=== PATIENT | female | born 1965 | race Caucasian/White ===

== ENCOUNTER 2019-12-28 21:07 | Emergency (ER) | payer OTHER, SELFPAY ==
--- NOTE | 2019-12-28 21:09 | DI.RAD.S_ITS ---
PROCEDURE: XR ANKLE RT MIN 3V INDICATIONS: obvious deformity TECHNIQUE: 3 views of the ankle were acquired. COMPARISON: None. FINDINGS: Bones: There is a trimalleolar fracture dislocation of the right ankle with moderate lateral displacement of the tibiotalar articulation. The distal tibiofibular metaphyseal alignment appears maintained. There is slight posterior subluxation at the tibiotalar joint seen on the lateral view. Soft tissues: Moderate tibiotalar joint effusion and surrounding soft tissue swelling. Achilles tendon appears normal. IMPRESSION: 1. Trimalleolar fracture dislocation. Dictated by: Mili Cook M.D. on 12/28/2019 at 21:35 Approved by: Mili Cook M.D. on 12/28/2019 at 21:37
--- NOTE | 2019-12-28 21:09 | DI.RAD.S_ITS ---
PROCEDURE: XR KNEE RT 1TO2V INDICATIONS: fall with pain TECHNIQUE: 2 views of the knee were acquired. COMPARISON: None. FINDINGS: Bones: No fractures or dislocations. There is near-complete medial compartment joint space loss and prominent medial marginal spur formation. Flattening of the femoral condyles is present. No suspicious bony lesions. Soft tissues: No joint effusion. Mild lateral compartment chondrocalcinosis seen. No suspicious soft tissue calcifications. IMPRESSION: 1. No definite fracture or dislocation given 2 views. 2. Moderate to severe medial compartment osteoarthritic change. 3. Lateral compartment chondrocalcinosis. Dictated by: Mili Cook M.D. on 12/28/2019 at 21:37 Approved by: Mili Cook M.D. on 12/28/2019 at 21:39
[2019-12-28 21:10] VITALS: BP 191/79; PULSE 75; RESP 19; TEMP 36.6; O2SAT 100; BMI 38.4
--- NOTE | 2019-12-28 21:26 | PC.NURSE ---
closed skin with obvious deformity or right ankle. Patient reports taking out her garbage and tripping resulting in right ankle pain with no ability to get self up.
[2019-12-28 21:37] VITALS: BP 188/78; PULSE 87; RESP 18; O2SAT 98
[2019-12-28] MEDS: KETAMINE 500 MG/5 ML INJ 120 MG IV (22:00)
[2019-12-28 22:10] VITALS: BP 181/86; PULSE 77; RESP 16; O2SAT 100
--- NOTE | 2019-12-28 22:20 | DI.RAD.S_ITS ---
PROCEDURE: XR ANKLE RT 2V INDICATIONS: post reduction TECHNIQUE: 2 views of the ankle were acquired. COMPARISON: [facility], , XR ANKLE RT MIN 3V, 12/28/2019, 21:04. FINDINGS: There has been placement of an overlying splint, which does result in difficulty evaluating the underlying bony structures for subtle abnormalities. However, there has been interval improvement in alignment of the trimalleolar ankle fracture, which appears to be in near anatomic position. Prominent improvement in alignment of the medial and lateral malleolar fractures is evident. There is posterior displacement of the posterior malleolar fracture fragment by up to approximately 1.2 cm. Soft tissue swelling is present. No radiopaque foreign bodies are appreciated. IMPRESSION: Improved alignment of the trimalleolar right ankle fracture, status post closed reduction. Dictated by: Tc Jay M.D. on 12/29/2019 at 7:37 Approved by: Tc Jay M.D. on 12/29/2019 at 7:38
--- NOTE | 2019-12-28 22:39 | PC.NURSE ---
patient received ketamine and was able to have ankle reduced with no further medications. Patient maintained own airway through out procedure. No airway interventions necessary. Additional vitals printed, labled with patient label and placed in chart.
[2019-12-28] MEDS: HYDROCODONE/ACET 5/325 TABLET 2 TAB PO (23:30)
--- NOTE | 2019-12-28 23:40 | ED_ITS ---
HPI - Extremity Injury (Lower) General Chief Complaint: Extremity Injury, Lower Stated Complaint: GLF-Ankle deformity Time Seen by Provider: 12/28/19 21:10 Source: patient and EMS Mode of arrival: EMS Limitations: no limitations History of Present Illness HPI Narrative: 54-year-old female nonsmoker with noncontributory medical history presents by EMS for evaluation of severe right ankle pain and obvious deformity. She was walking and stepped incorrectly and suffered a significant ankle injury. She denies any head neck or back pain. She does think that she might have tweaked her knee but denies much in the way of pain. She denies any numbness, tingling or weakness. She states she absolutely cannot weight bear. EMS put her in vacuum splint and administered fentanyl 150 micro g prior to her arrival MD complaint: ankle injury Type of Injury: inversion Place: street/outdoors Severity: severe Relieving factors: immobilization Exacerbating factors: weight bearing, movement and palpation Related Data Home Medications Medication Instructions Recorded Confirmed acetaminophen [Tylenol Extra 500 mg PO Q8HP PRN #0 10/04/16 Strength] Previous Rx's Medication Instructions Recorded hydrocodone-acetaminophen 0 tab PO Q6HP PRN #15 tab 09/19/16 hydrocodone-acetaminophen 1 tab PO Q4-6H PRN #20 tab 12/28/19 Allergies Allergy/AdvReac Type Severity Reaction Status Date / Time codeine [CODEINE] Allergy Mild RASH Verified 12/28/19 23:24 erythromycin base Allergy Mild RASH Verified 12/28/19 23:24 [ERYTHROMYCIN BASE] Penicillins [PENICILLINS] Allergy Mild RASH Verified 12/28/19 23:24 Patient History Surgical History (Updated 01/24/18 @ 06:34 by Conversion Provider) Status post delivery (12/18/97) Status post knee surgery Family History (Updated 10/04/16 @ 00:00 by Kianna Elizabeth PA-C) Mother History of diabetes mellitus, type II History of hypertension History of hyperlipidemia History of stroke Social History Smoking Status: Never smoker Smoking Status: Never smoker alcohol intake frequency: holidays/special occasions only Substance Use Type: does not use Exam Narrative Exam Narrative: GENERAL: [54] year old patient appears stated age. Well- nourished, well-developed patient, in mild distress. Obviously in pain, pointing to her right ankle HEAD: Atraumatic. Normocephalic. EYES: Pupils equal round and reactive. Extraocular motions intact. No scleral icterus. No injection or drainage. ENT: Nose without bleeding, purulent drainage. Throat without erythema, tonsillar hypertrophy or exudate. Airway patent. NECK: Trachea midline. Non tender CARDIOVASCULAR: Regular rate and rhythm without murmurs, gallops, or rubs. RESPIRATORY: Clear to auscultation. Breath sounds equal bilaterally. No wheezes, rales, or rhonchi. GASTROINTESTINAL: Abdomen soft, non-tender, nondistended. EXTREMITIES: Obvious deformity of right ankle consistent with fracture dislocation. This is isolated, closed and neurovascularly intact BACK: Nontender without deformity or crepitance. No flank tenderness. NEURO: AOx3. SKIN: No rash or erythema of visible areas Initial Vital Signs Initial Vital Signs: Vital Signs Temperature 97.9 F 12/28/19 21:10 Pulse Rate 75 12/28/19 21:10 Respiratory Rate 19 12/28/19 21:10 Blood Pressure 191/79 H 12/28/19 21:10 Pulse Oximetry 100 12/28/19 21:10 Procedures Orthopedic Joint Reduction Joint #1: Time Out Performed: Yes Side: right Joint Reduction Location: ankle Analgesia: procedural sedation Technique used: traction/counter-traction Post-reduction neuro exam: intact Post-reduction vascular: intact Post Reduction X-Ray Obtained: Yes Post Reduction X-Ray Results: reduced Splint Applied: Yes Patient Tolerated Procedure: Well Orthopedic Splinting/Casting Injury #1: Side: right Lower Extremity Injury Location: ankle Lower Extremity Immobilizer: posterior splint and stirrup splint Other Orthopedic Equipment: crutches Post splinting neuro exam: intact Post splinting vascular exam: intact Placed by: Nursing Procedural Sedation Consent signed: Yes Time out performed: Yes Indication: fracture/dislocation reduction ASA Class: II Mallampati Airway Classification: Class II Preparation: cardiac rehabilitation program director applied, pulse oximeter, capnometry used, supplemental O2 applied, suction/airway equipment at bedside and IV secured Ketamine: IV Ketamine dose (mg): 120 Intraservice time/total sedation time (min): 10 ED Sedation Level: Moderate (Concious) Patient Tolerated Procedure: Well Complications: none Course Orders Ordered: ED Orders 12/28/19 21:09 XR ankle RT min 3V Stat XR knee RT 1to2V Stat 12/28/19 22:20 XR ankle RT 2V Stat Discontinued Medications Hydrocodone Bitart/Acetaminophen (Vicodin 5/325 Prepack) 1 bottle MISC SEEINSTR ONE Stop: 12/28/19 22:57 Last Admin: 12/29/19 00:03 Dose: 1 bottle Documented by: SELIN Hydrocodone Bitart/Acetaminophen ([place] 5/325) 2 tab PO NOW ONE Stop: 12/28/19 23:26 Last Admin: 12/28/19 23:30 Dose: 2 tab Documented by: SELIN Ketamine HCl (Ketalar) 120 mg 1 mg/kg (120 mg) IV NOW ONE Stop: 12/28/19 21:46 Last Admin: 12/28/19 22:00 Dose: 120 mg Documented by: SELIN Ondansetron HCl (Zofran Odt Prepack) 1 bottle MISC SEEINSTR ONE Stop: 12/28/19 22:57 Last Admin: 12/29/19 00:03 Dose: 1 bottle Documented by: SELIN Pantoprazole Sodium (Protonix) 40 mg IV NOW ONE Stop: 12/28/19 22:22 Propofol (Diprivan) 120 mg 1 mg/kg (120 mg) IV NOW ONE Stop: 12/28/19 21:46 Last Admin: 12/28/19 22:44 Dose: Not Given Documented by: SELIN Consultations Consultation #1: call to Dr. Adams. Discussed case, splinting, crutches, pain control and follow up Vital Signs Vital signs: Vital Signs - 8 hr 12/28/19 21:10 12/28/19 21:37 12/28/19 22:10 Temperature 97.9 F Pulse Rate 75 87 77 Respiratory Rate 19 18 16 Blood Pressure 191/79 H Blood Pressure [Left Arm] 188/78 H 181/86 H Pulse Oximetry 100 98 100 MDM - Extremity Injury (Lower) Lab Data Labs: Point of Care Testing Test Results Not applicable Discharge Plan Departure Patient Disposition: Home Clinical Impression: Closed trimalleolar fracture Qualifiers: Encounter type: initial encounter Laterality: right Qualified Code(s): S82.851A - Displaced trimalleolar fracture of right lower leg, initial encounter for closed fracture Discharge Date/Time: 12/29/19 00:00 Instructions: DI for Ankle Fracture Activity Restrictions/Additional Instructions: *You have been diagnosed with [acute right ankle trimalleolar fracture, which has been reduced and splinted] *What to do: *Take medications as directed: NO WEIGHT BEARING *Follow up with your [facility] in 2-3 days, call for an appointment. Let them know you were seen in the Emergency Department and that we ask that you be seen in follow up *Return to ER if you should have any new, worsening or concerning symptoms Splint Care: Keep splint clean and dry. Elevated affected body part to decrease swelling. OK to use ice pack on the affected body part. Use for 15-20 minutes each time, for 5-6x per day. If you develop worsening pain, numbness, tingling, discoloration of the affected body part, loosen the splint by loosening the JANEEN wrap, and either see your doctor for an urgent re-assessment, or return to the Emergency Department. Return to the Emergency Department for any new or worsening symptoms. Prescriptions: New hydrocodone-acetaminophen 5-325 mg tablet 1 tab PO Q4-6H PRN (Reason: pain) Qty: 20 RF: 0 No Action hydrocodone-acetaminophen 5 MG/325 MG tablet 0 tab PO Q6HP PRNQty: 15 RF: 0 acetaminophen [Tylenol Extra Strength] 500 MG tablet 500 mg PO Q8HP PRNQty: 0 RF: 0 Referrals: Yariel Adams MD [Physician] -
[2019-12-29] MEDS: HYDROCODONE/ACET 5/325 PREPACK 1 BOTTLE MISC (00:03)
[2019-12-29] MEDS: ONDANSETRON 4 MG ODT PREPACK 1 BOTTLE MISC (00:03)
--- NOTE | 2019-12-29 00:08 | PC.NURSE ---
stirrup and posterior splint applied by NEHEMIAS and Kimberley SANTANA during sedation. Provider ok'd splint placment. OKs patient for discharge.
--- NOTE | 2019-12-29 00:08 | PC.NURSE ---
patient demonstrated use of crutches safely.
== END 2019-12-29 | disposition home or self-care (01) ==
PROVIDERS: Emergency Provider Emergency Medicine; Family Provider Family Medicine
DX: S82.851A Displaced trimalleolar fracture of right lower leg, initial encounter for closed fracture (principal); W22.8XXA Striking against or struck by other objects, initial encounter
CPT/HCPCS: 27818; 73560; 73600; 73610; 99152; 99285

== ENCOUNTER → 2020-01-02 09:06 | Outpatient (CLI) | payer OTHER, SELFPAY ==
[2020-01-04 00:36] LABS: COVID19 Sendout Not Detected (Not Detected)
== END ==
PROVIDERS: Family Provider Family Medicine; Visit Provider Physician Assistant
DX: Z20.828 Contact with and (suspected) exposure to other viral communicable diseases (principal)
CPT/HCPCS: 87635

== ENCOUNTER 2020-01-04 06:37 | Day surgery (SDC) | payer OTHER, SELFPAY ==
[2020-01-03 09:35] VITALS: BMI 38.4
[2020-01-04] VITALS (8 sets, daily range): BP systolic 150–173; BP diastolic 84–96; PULSE 84–98; RESP 13–18; TEMP 36.2–37.4; O2SAT 90–95; BMI 38.4
[2020-01-04] MEDS: LACTATED RINGERS 1,000 ML 42 ML IV (07:50)
--- NOTE | 2020-01-04 07:51 | PM.PREOP ---
Pre-operative Note Interval Note History & Physical reviewed/Exam performed by Physician: Yes Changes to H&P: Yes H&P completed within 30 days and has changed as indicated here:: Preoperative Covid-19 test returned negative.
[2020-01-04] MEDS: fentaNYL 100 MCG/2 ML INJ 50 MCG IV (08:00)
[2020-01-04] MEDS: MIDAZOLAM 2 MG/2 ML VIAL IV (08:04)
[2020-01-04] MEDS: CEFAZOLIN 2 GM/100 ML FROZ.PIGGY IV (08:08)
--- NOTE | 2020-01-04 08:35 | SUR.OPER ---
Supine on padded OR bed, head on pillow, arms secured on padded arm boards at <90 degrees abduction, legs uncrossed, safety belt at thigh, tape over blanket over lower legs. Right hip bumped with sandbag and gel pad.
[2020-01-04] MEDS: BUPIVACAINE 0.5% (PF) VIAL 30 ML INJ (08:42)
--- NOTE | 2020-01-04 08:42 | SUR.PREOP ---
Block start time [0800] . Monitoring initiated and maintained throughout procedure. Oxygen and medications given per anesthesiologist instructions. Patient remained stable throughout procedure, no adverse reactions noted. Block end time [0808].
--- NOTE | 2020-01-04 08:43 | SUR.PREOP ---
Patient given 2 mg Versed and 100 mcg of fentanyl for procedure. Placed on 2L 02 via NC and tele monitor. Tolerated procedure well.
--- NOTE | 2020-01-04 09:36 | P.OP_ITS ---
Operative Date/Time/Diagnoses Date of procedure: 01/04/20 Time of procedure: 09:20 Pre-op diagnosis: Right trimalleolar ankle fracture Post-op diagnosis: same Procedure & Clinicians Procedure: Open reduction and internal fixation of lateral and medial malleolus fractures without fixation of posterior malleolus fracture for trimalleolar fracture Same procedure as scheduled: Yes Indications: The patient is a 54-year-old woman who injured her ankle with a fracture dislocation. The dislocation portion was reduced in the emergency room and she was placed in a splint and sent to my office for follow-up. She has agreed to surgery after discussion of the risks benefits and alternatives. Risks discussed included but were not limited to: Failure to relieve pain, failure to achieve full function, nerve damage, infection, stiffness, deep venous thrombosis, pulmonary embolism, stroke, myocardial infarction, permanent paralysis and . Surgeon: Yariel Adams Click Yes if Unassisted: Yes Anesthesia Type: General, Peripheral nerve block and Local Operative Notes Findings: Satisfactory reduction. Closure Type: primary Specimen(s): none sent Prosthetic devices, grafts, tissues, transplants, or devices: Implants used in this procedure were manufactured by the [employer] and included a 6 hole 1/3 tubular side plate for the fibula, there were 4 cortical and 2 cancellous screws through the plate. In addition there was a fully threaded cortical lag screw placed. For the medial malleolus there were 2 partially threaded 40 mm cancellous screws used. Applied: cast(s) (Bulky Johnston splint) and implant(s) Estimated Blood Loss (mL): 10 Blood products transfused: none Tourniquet time (min): 44 Procedure in detail: The patient was seen in the preoperative area where she identified her right leg as the operative site and this was marked with my initials. Her splint was loosened in the preoperative area and her skin checked for fracture blisters. The skin was intact. She received 2 g of Ancef and underwent a peripheral nerve block for postoperative pain control. She was then placed on the operating room table in a supine position. A tourniquet was placed about her proximal right leg. Her splint was removed and the leg prepared and draped with ChloraPrep and sterile drapes in the usual fashion. Prior to draping a double end tenon operator-out was performed. The leg was elevated and exsanguinated with an Esmarch bandage and the tourniquet inflated to 250 mm of mercury. The lateral malleolar fracture was approached through an approximately 10 cm incision. This was carried with scissor dissection to the level of fascia which was incised to access the fibula. Care was taken to be vigilant for branches of the superficial peroneal nerve however none were found. The fracture was cleaned of hematoma and reduced with a lobster claw reduction clamp. A lag screw was placed which preliminarily held the fracture and the clamp was removed. A 6 hole lateral buttress plate was bent and placed in position to support the lag screw. The position of the fracture and hardware was viewed on fluoroscopy and found to be satisfactory. The lateral wound was irrigated and the subcutaneous layer closed with interrupted 3 O Vicryl. We turned our attention to the medial side. An approximately 5 cm incision was created centered on the tip of the medial malleolus. The fracture was identified and cleaned of periosteum and hematoma in the fracture site. This was reduced with a pointed reduction clamp. Two parallel 40 mm partially-thre aded cancellous screws were placed from the tip of the malleolus proximally to secure this fracture. The clamp was then removed. The ankle was viewed on fluoroscopy in the mortise and lateral views and the position of the fractures and all hardware was found to be satisfactory. There was a small fracture of the posterior lip of the tibia but this was well reduced and not large enough to merit fixation. The medial wound was then irrigated and closed with interrupted 3 O Vicryl and angel. The lateral wound was also closed with angel in the cutaneous layer. A total of 10 mL of 0.5% Marcaine was injected in the subcutaneous tissues in both areas for postoperative pain control. Dressings of Xeroform, sterile 4x4s, sterile cast padding followed by several rolls of nonsterile cast padding and a stirrup type bulky Johnston splint were applied. The tourniquet was deflated during dressing placement for total tourniquet time of 44 minutes. The patient was then allowed to awaken from her anesthetic and transported to the recovery room in good condition having tolerated the procedure well. Complications: none Post-operative Condition: stable Disposition: PACU Plan for aftercare: Discharge today. She will remain nonweightbearing for total of 4 weeks in the current splint for 2 weeks and then in a short-leg cast for an additional 2 weeks. She will then be allowed to weight bear as tolerated in a walking orthosis. She will be given oxycodone for pain control and Vistaril for for spasms upon discharge today.
[2020-01-04] MEDS: OXYCODONE IR 5 MG TABLET PO (09:47)
[2020-01-04] MEDS: ONDANSETRON 4 MG/2 ML INJ IV (09:48)
[2020-01-04] MEDS: hydrOXYzine pamoate 25 MG CAPSULE PO (09:48)
--- NOTE | 2020-01-04 10:02 | SUR.PHASEII ---
Gave po pain medication for c/o pain. Tolerating po.
== END 2020-01-04 11:31 | disposition home or self-care (01) ==
PROVIDERS: Family Provider Family Medicine; PCP Physician Assistant Medical; Referring Provider Orthopaedic Surgery; Visit Provider Orthopaedic Surgery
PROC: 0SSF04Z Reposition Right Ankle Joint with Internal Fixation Device, Open Approach (ICD-10-PCS; CPT 27822; principal; 2020-01-04 07:45)
DX: S82.851A Displaced trimalleolar fracture of right lower leg, initial encounter for closed fracture (principal); W10.9XXA Fall (on) (from) unspecified stairs and steps, initial encounter; M81.0 Age-related osteoporosis without current pathological fracture
CPT/HCPCS: 27822; J0690; J1100; J2250; J2405; J2704; J3010

== ENCOUNTER 2021-08-14 19:30 | Emergency (ER) | payer OTHER, SELFPAY ==
[2021-08-14 20:10] VITALS: BP 185/86; PULSE 90; RESP 16; TEMP 36.5; O2SAT 96; BMI 34.4
[2021-08-14 20:54] LABS: Add Manual Diff / Slide Review NO; Basophils Absolute Auto 100 /uL (0-100); Eosinophils Absolute Auto 100 /uL (0-450); Eosinophils Percent Auto 1.5 % (2-4); Hematocrit 38.5 % (36-46); Hemoglobin 13.1 g/dL (12.0-16.0); Lymphocytes Absolute Auto 2000 /uL (1100-4500); Lymphocytes Percent Auto 29.2 % (25-40); Mean Corpuscular Hemoglobin 30.2 PG (26-34); Mean Corpuscular Volume 88.9 fL (80-100); Monocytes Absolute Auto 400 /uL (0-900); Monocytes Percent Auto 5.5 % (3-14); Neutrophils Absolute Auto 4300 /uL (1500-7000); Neutrophils Percent Auto 62.8 % (50-75); Platelet Count 282 X10^3/uL (150-400); Red Blood Cell Count 4.33 X10^6/uL (4.0-5.2); White Blood Cell Count 6.8 X10^3/uL (4.5-11.0)
[2021-08-14 21:00] LABS: Alanine Aminotransferase 14 IU/L (<35); Albumin 4.5 g/dL (3.5-5.0); Albumin Globulin Ratio 1.4 (1.0-2.8); Alkaline Phosphatase 89 U/L (38-126); Aspartate Aminotransferase 21 IU/L (14-36); BUN Creatinine Ratio 21.8 (6-22); Bilirubin Total 0.6 mg/dL (0.2-1.3); Blood Urea Nitrogen 19 mg/dL (7-17); Calcium 9.5 mg/dL (8.4-10.2); Carbon Dioxide 31 mmol/L (22-32); Chloride 102 mmol/L (98-107); Estimated Glomerular Filt Rate > 60.0 mL/min (>60); Globulin 3.3 g/dL (1.7-4.1); Glucose 107 mg/dL (70-100); HEMOLYSIS 18 (0-50); Lipase 39 U/L (23-300); Potassium 3.9 mmol/L (3.4-5.1); Sodium 139 mmol/L (137-145); Total Protein 7.8 g/dL (6.3-8.2)
[2021-08-14 21:33] LABS: RBC Urine 0-1/HPF (0-5/HPF); Squamous Epithelial Cell Urine 0-1 /HPF (0-5/HPF); Transitional Epi Cells Urine 0-1/HPF (0-5/HPF); WBC Urine 1-5/HPF (0-5/HPF)
[2021-08-14 21:34] LABS: Bacteria Urine Occasional (0-1); Culture Indicated Urine Cult Not Indicated
[2021-08-14] MEDS: ACETAMINOPHEN 325 MG TABLET 650 MG PO (23:58)
[2021-08-15 01:41] VITALS: BP 173/79; PULSE 72; RESP 16; O2SAT 99
--- NOTE | 2021-08-15 02:56 | ED_ITS ---
HPI - General Adult General Chief complaint: Abdominal Pain Stated complaint: Rt Groin Burning Pain Time Seen by Provider: 08/15/21 02:56 Mode of arrival: Ambulatory History of Present Illness HPI narrative: 56-year-old with history of breast cancer right side status post trans flap procedure presents with right lower quadrant abdominal pain that seems to be mor e superficial and in and around the scar tissue of the trans flap rather than deeper into the pelvis. A number of months ago she was having some right leg paresthesias in her surgeon did a CT scan of the abdomen did not find any explanation for the leg pain. She notes that this right lower quadrant abdominal pain has been getting worse over the last 4 days. She states that it hurts all the time but it is worse if she is up and moving, laying on her right side or if her dog happens to jump up on her lap. She denies flank pain, dysuria, constipation, vomiting. She has had no chest pain or palpitations. She does note that it hurts to laugh at hurts when they went over bumps on their way in in the car Related Data Home Medications Medication Instructions Recorded Confirmed acetaminophen 500 mg tablet 1,000 mg PO Q6H PRN 01/03/20 01/03/20 (Tylenol Extra Strength) anastrozole 1 mg PO BEDTIME 01/03/20 01/04/20 rnuwlmr-ttagmfrrquxlj-yrfaknhd 250 1 tab PO Q4-6H PRN 01/03/20 01/03/20 mg-250 mg-65 mg tablet (Excedrin Migraine) duloxetine 30 mg capsule,delayed 30 mg PO DAILY 01/03/20 01/04/20 release hydroxyzine HCl 25 mg tablet 50 mg PO BEDTIME 01/03/20 01/04/20 ibuprofen 200 mg capsule 400 mg PO Q6H PRN 01/03/20 01/04/20 lidocaine 5 % topical patch 1 patch TOPICAL BEDTIME PRN 01/03/20 01/03/20 Previous Rx's Medication Instructions Recorded hydroxyzine pamoate 25 mg capsule 25 mg PO Q6HR PRN #30 cap 01/04/20 oxycodone 5 mg tablet 5 mg PO Q4HR PRN #40 tab 01/04/20 oxycodone-acetaminophen 5 mg-325 1 tab PO Q6H PRN #12 tab 08/15/21 mg tablet Allergies Allergy/AdvReac Type Severity Reaction Status Date / Time codeine [CODEINE] Allergy Mild RASH Verified 08/14/21 20:16 erythromycin base Allergy Mild RASH Verified 08/14/21 20:16 [ERYTHROMYCIN BASE] Penicillins [PENICILLINS] Allergy Mild RASH Verified 08/14/21 20:16 Review of Systems Review of Systems Narrative: Remainder of complete review of systems is otherwise unremarkable except for that included in the HPI. Patient History Medical History Abrasion of left knee (12/28/19) Anxiety Breast cancer, right (09/2018) Depression Surgical History History of bilateral tubal ligation Hx of arthroscopy of right knee Hx of bilateral mastectomy (01/2019) Hx of cholecystectomy (1996) Hx of right knee surgery Status post delivery (12/18/97) Family History Mother History of diabetes mellitus, type II History of hypertension History of hyperlipidemia History of stroke Social History household members: none Smoking Status: Never smoker alcohol intake: current Smoking Status: Never smoker alcohol intake frequency: holidays/special occasions only Substance Use Type: does not use Exam Narrative Exam Narrative: General: Healthy appearing, in no acute distress. Able to give a complete and coherent history. Well-nourished well-developed HEENT: Moist mucous membranes, normal sclera with reactive pupils, Neck: supple Respiratory: Lungs are clear to auscultation, no wheezing no rales no rhonchi. Full and symmetrical air movement Cardiac: Regular rate and rhythm no murmurs no bruits Chest: Multiple surgical scars Abdomen: Soft, tender in the right lower quadrant seems to be superficial and related to the tram flap scar rather than being deeper in the pelvis, good bowel tones, no flank pain Skin: Warm and dry, no rashes Neurologic: Grossly neurologically intact with no obvious asymmetries or abnormalities Extremities: No trauma, well perfused Psych: Cooperative, appropriate insight and affect Initial Vital Signs Initial Vital Signs: Vital Signs Temperature 97.7 F 08/14/21 20:10 Pulse Rate 90 08/14/21 20:10 Respiratory Rate 16 08/14/21 20:10 Blood Pressure 185/86 H 08/14/21 20:10 Pulse Oximetry 96 08/14/21 20:10 Course Orders Ordered: ED Orders 08/14/21 20:40 Complete Blood Count AUTO DIFF Stat Comprehensive Metabolic Panel Stat Lipase Stat 08/14/21 21:16 Urine Microscopic Stat 08/15/21 03:06 CT abdomen pelvis w con Stat Hydromorphone HCl (Hydromorphone 0.5 Mg Inj) 0.5 mg IV Q15MIN PRN PRN Reason: Pain, Last Admin: 08/15/21 03:16 Dose: 0.5 mg Documented by: MINGO Discontinued Medications Acetaminophen (Acetaminophen 325 Mg Tablet) 650 mg PO NOW ONE Stop: 08/14/21 23:56 Last Admin: 08/14/21 23:58 Dose: 650 mg Documented by: ABDULLAHI Sodium Chloride (Normal Saline 0.9%) 1,000 mls @ 1,000 mls/hr IV BOLUS ONE Stop: 08/15/21 04:04 Last Admin: 08/15/21 03:16 Dose: 1,000 mls/hr Documented by: MINGO Vital Signs Vital signs: Vital Signs - 8 hr 08/15/21 01:41 Pulse Rate 72 Respiratory Rate 16 Blood Pressure 173/79 H Pulse Oximetry 99 Medical Decision Making Lab Data Result diagrams: 08/14/21 20:40 08/14/21 20:40 Labs: Lab Results 08/14/21 08/14/21 08/14/21 Range/Units 20:40 20:40 21:16 WBC 6.8 (4.5-11.0) X10^3/uL RBC 4.33 (4.0-5.2) X10^6/uL Hgb 13.1 (12.0-16.0) g/dL Hct 38.5 (36-46) % MCV 88.9 (80-100) fL MCH 30.2 (26-34) PG MCHC 34.0 (30-36) % RDW 14.0 (11.6-14.8) % Plt Count 282 (150-400) X10^3/uL Neut % (Auto) 62.8 (50-75) % Lymph % (Auto) 29.2 (25-40) % Clay % (Auto) 5.5 (3-14) % Eos % (Auto) 1.5 L (2-4) % Baso % (Auto) 1.0 (0-2) % Neut # (Auto) 4300 (0243-9816) /uL Lymph # (Auto) 2000 (9874-9509) /uL Clay # (Auto) 400 (0-900) /uL Eos # (Auto) 100 (0-450) /uL Baso # (Auto) 100 (0-100) /uL Sodium 139 (137-145) mmol/L Potassium 3.9 (3.4-5.1) mmol/L Chloride 102 (98-107) mmol/L Carbon Dioxide 31 (22-32) mmol/L BUN 19 H (7-17) mg/dL Creatinine 0.87 (0.52-1.04) mg/dL Estimated GFR > 60.0 (>60) mL/min BUN/Creatinine Ratio 21.8 (6-22) Glucose 107 H (70-100) mg/dL Calcium 9.5 (8.4-10.2) mg/dL Total Bilirubin 0.6 (0.2-1.3) mg/dL AST 21 (14-36) IU/L ALT 14 (<35) IU/L Alkaline Phosphatase 89 (38-126) U/L Total Protein 7.8 (6.3-8.2) g/dL Albumin 4.5 (3.5-5.0) g/dL Globulin 3.3 (1.7-4.1) g/dL Albumin/Globulin Ratio 1.4 (1.0-2.8) Lipase 39 (23-300) U/L Urine RBC 0-1/hpf (0-5/HPF) Urine WBC 1-5/hpf (0-5/HPF) Ur Squamous Epith Cells 0-1 /hpf (0-5/HPF) Ur Transition Epith Cell 0-1/hpf (0-5/HPF) Other Crystals 2+ amorphous Urine Bacteria Occasional (0-1) (None) Ur Culture Indicated? Cult not indicated Urine Dip Bedside Urine Glucose Negative Bedside Urine Bilirubin - Negative Bedside Urine Ketone - Negative Urine Specific [place] 1.030 Bedside Urine Occult Blood ++ Bedside Urine pH 5.5 Bedside Urine Protein - Negative Bedside Urine Urobilinogen - Negative Bedside Urine Nitrite - Negative Bedside Urine Leukocytes - Negative Esterase Point of care testing: Urine Dip Bedside Urine Glucose Negative Bedside Urine Bilirubin - Negative Bedside Urine Ketone - Negative Urine Specific [place] 1.030 Bedside Urine Occult Blood ++ Bedside Urine pH 5.5 Bedside Urine Protein - Negative Bedside Urine Urobilinogen - Negative Bedside Urine Nitrite - Negative Bedside Urine Leukocytes - Negative Esterase Imaging Data CT scan - abdomen/pelvis: Radiologist's Impression: No evidence of appendicitis, no acute abnormality identified, operative changes appreciated Pablo Piper MD [facility] Narrative Medical decision making narrative: 56-year-old woman with history of breast cancer, tram flap surgery and right lower quadrant pain that falls along the tram flap site in the right lower quadrant. Labs are unremarkable. She has no evidence of hernia, complication at the prior surgical line, adhesions to the lower abdominal wall or appendicitis to explain her pain. I suspect that this is a musculoskeletal finding related to the previous surgery. She will be given pain medication to have available at home and will follow-up with her primary care physician. At this time there is no evidence of overall infection or acute surgical abdomen. Discharge Plan Departure Patient Disposition: Home Clinical Impression: Abdominal wall pain in right lower quadrant Instructions: DI for Abdominal Muscle Strain Activity Restrictions/Additional Instructions: Thank you for coming in today Your CT scan did not show and infection, hernia or any internal abnormality that would require surgery I suspect that this is related to the abdominal wall and to the tram flap surgery. Using 400 mg of ibuprofen (2 kido-umk-xixaphl pills) and 1 Tylenol every 6 hours can be very helpful in controlling pain. For severe pain, using 400 mg of ibuprofen and 1 Percocet can be helpful. If you choose to use the Percocet, please make sure that you also uses stool softener to prevent constipation If you find that you are getting worse, please feel free to return to the emergency department Prescriptions: New oxycodone-acetaminophen 5-325 mg tablet 1 tab PO Q6H PRN (Reason: pain) Qty: 12 0RF No Action ibuprofen 200 mg Capsule 400 mg PO Q6H PRN (Reason: Pain) 0RF acetaminophen [Tylenol Extra Strength] 500 mg Tablet 1,000 mg PO Q6H PRN (Reason: Pain) 0RF lidocaine 5 % Adhesive Patch,Medicated 1 patch TOPICAL BEDTIME PRN (Reason: Pain) 0RF hydroxyzine HCl 25 mg Tablet 50 mg PO BEDTIME 0RF Excedrin Migraine 250-250-65 mg Tablet 1 tab PO Q4-6H PRN (Reason: Migraine Headache) 0RF duloxetine 30 mg Capsule,Delayed Release(Dr/Ec) 30 mg PO DAILY 0RF anastrozole 1 mg PO BEDTIME 0RF oxycodone 5 mg Tablet 5 mg PO Q4HR PRN (Reason: Pain, Moderate (4-6)) Qty: 40 0RF hydroxyzine pamoate 25 mg Capsule 25 mg PO Q6HR PRN (Reason: Spasms) Qty: 30 0RF Referrals: Jorje Murcia DO [Primary Care Provider] -
--- NOTE | 2021-08-15 03:06 | DI.CT.S_ITS ---
PROCEDURE: CT ABDOMEN PELVIS W CON INDICATIONS: RLQ abdominal pain TECHNIQUE: After the administration of oral and IV contrast, axial sections were acquired from the lung bases to the pubic symphysis. Coronal and sagittal reformats were performed. For radiation dose reduction, the following was used: automated exposure control, adjustment of mA and/or kV according to patient size. COMPARISON: Outside Film, CT, CT CHEST WITH CONTRAST, 02/27/2019, 13:30. FINDINGS: Image quality: Excellent. Lung bases: Unremarkable. There is partial visualization of a right mammoplasty implant. Heart: No significant findings. ABDOMEN: Liver: Unremarkable. Gallbladder: Removed. Biliary ducts: Unremarkable. Pancreas: Unremarkable. Spleen: The spleen is mildly enlarged, measuring 13.6 cm in greatest axial dimension. Adrenal Glands: Unremarkable. Kidneys and Ureters: Unremarkable. Stomach and Bowel: In this patient with this given history, scrutiny is given to the appendix. No appendix can be seen, either normal or abnormal. No focal right lower quadrant inflammatory changes are seen. Stomach, small bowel loops, and colon are unremarkable. Peritoneum: No abnormal intraperitoneal fluid. No free air. Ventral Wall: A mild periumbilical hernia is seen, containing fat. Postoperative changes can be seen of the anterior abdominal wall. Abdominal Nodes: No retroperitoneal or mesenteric adenopathy by size criteria. Vessels: Aorta and inferior vena cava are normal in size. PELVIS: Pelvic Organs: The uterus appears normal for age. No adnexal masses are seen. Bladder: Unremarkable. Pelvic Nodes: No enlarged lymph nodes. Miscellaneous: No inguinal hernias are seen. Bones: Unremarkable. IMPRESSION: No appendix can be seen on these images, either normal or abnormal. No focal right lower quadrant inflammatory changes are seen. Incidental note is made of: Right mammoplasty implant Cholecystectomy Mild splenomegaly Mild fat containing periumbilical hernia. Note: No significant discrepancy from the preliminary report. Dictated by: Serge Jules M.D. on 08/15/2021 at 9:20 Approved by: Serge Jules M.D. on 08/15/2021 at 9:24
[2021-08-15] MEDS: SODIUM CHLORIDE 0.9% 1,000 ML 1000 ML IV (03:16)
[2021-08-15] MEDS: HYDROMORPHONE 0.5 MG INJ IV (03:16)
[2021-08-15 05:18] VITALS: BP 152/74; PULSE 77; RESP 16; O2SAT 99
== END 2021-08-15 05:26 | disposition home or self-care (01) ==
PROVIDERS: Emergency Provider Emergency Medicine; PCP Family Medicine
DX: R10.31 Right lower quadrant pain (principal)
CPT/HCPCS: 36415; 74177; 80053; 81003; 81015; 83690; 85025; 96360; 96361; 99284; J1170; Q9967

== ENCOUNTER 2023-08-20 13:29 | Emergency (ER) | payer MEDICARE, MEDICAID, SELFPAY ==
[2023-08-20 13:32] VITALS: BP 131/76; PULSE 65; RESP 15; TEMP 36.1; O2SAT 98; BMI 30.8
--- NOTE | 2023-08-20 13:39 | DI.RAD.S_ITS ---
PROCEDURE: XR WRIST LT MIN 3V INDICATIONS: fall wrist injury TECHNIQUE: 4 views of the wrist were acquired. COMPARISON: [facility], , WRIST MINIMUM 3 VIEWS RIGHT, 09/19/2016, 16:50. FINDINGS: Bones: Acute comminuted and impacted distal radial fracture is seen with dorsal displacement and angulation at fracture site. 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 No other fracture or dislocation. Soft tissues: No suspicious soft tissue calcifications. IMPRESSION: Acute comminuted and impacted distal radial fracture as above. Dictated by: Louis Valentine M.D. on 08/20/2023 at 14:23 Approved by: Louis Valentine M.D. on 08/20/2023 at 14:25
[2023-08-20 14:12] VITALS: BP 146/91; PULSE 75; RESP 18; TEMP 37; O2SAT 99
[2023-08-20] MEDS: OXYCODONE/ACETAMINOPHEN 5/325 TABLET 2 TAB PO (14:16)
[2023-08-20 14:37] VITALS: BP 144/86; PULSE 67; RESP 18; O2SAT 98
--- NOTE | 2023-08-20 14:48 | ED.UPPEXIN ---
HPI - Extremity Injury (Upper) <Liza Johnston PA-C - Last Filed: 08/20/23 14:58> General Chief Complaint: Extremity Injury, Upper Stated Complaint: FALL/ thinks L/ wrist may be broke Time Seen by Provider: 08/20/23 13:47 Source: patient Mode of arrival: Ambulatory History of Present Illness HPI narrative: 58-year-old female with a history of osteopenia and breast cancer presents for evaluation of left wrist injury. Was walking her dog this morning when she tripped and fell on her outstretched left hand she had immediate pain and came for evaluation. She notices a some deformity at the wrist. She denies pain in the elbow or shoulder, nor does she have pain in other areas of her body. She has a history of right ankle fracture 3 years ago that healed well. She denies chronic pain in her finger joints though she does have chronic bilateral knee pain. Related Data Home Medications Medication Instructions Recorded Confirmed acetaminophen 500 mg tablet 1,000 mg PO Q6H PRN Pain 01/03/20 01/03/20 (Tylenol Extra Strength) anastrozole 1 mg PO BEDTIME 01/03/20 01/04/20 nbjgbvh-ochfqganihglq-wxyaruzv 250 1 tab PO Q4-6H PRN Migraine 01/03/20 01/03/20 mg-250 mg-65 mg tablet (Excedrin Headache Migraine) duloxetine 30 mg capsule,delayed 30 mg PO DAILY 01/03/20 01/04/20 release hydroxyzine HCl 25 mg tablet 50 mg PO BEDTIME Sleep 01/03/20 01/04/20 ibuprofen 200 mg capsule 400 mg PO Q6H PRN Pain 01/03/20 01/04/20 lidocaine 5 % topical patch 1 patch topical BEDTIME PRN Pain 01/03/20 01/03/20 Previous Rx's Medication Instructions Recorded hydroxyzine pamoate 25 mg capsule 25 mg PO Q6HR PRN Spasms #30 caps 01/04/20 hydrocodone 7.5 mg-acetaminophen 1 tab PO Q4-6H PRN pain #14 tabs 08/20/23 325 mg tablet oxycodone 5 mg capsule 5 mg PO Q6H PRN pain #20 caps 08/20/23 oxycodone 5 mg tablet 5 mg PO Q4HR PRN Pain, Moderate 08/20/23 (4-6) #20 tabs Allergies Allergy/AdvReac Type Severity Reaction Status Date / Time codeine [CODEINE] Allergy Mild RASH Verified 08/20/23 13:34 erythromycin base Allergy Mild RASH Verified 08/20/23 13:34 [ERYTHROMYCIN BASE] Penicillins [PENICILLINS] Allergy Mild RASH Verified 08/20/23 13:34 Review of Systems <Liza Johnston PA-C - Last Filed: 08/20/23 14:58> Review of Systems Narrative: GENERAL: Denies chills, fatigue, malaise, fever, sweats. HEENT: Denies sinus pain, ear pain, sore throat, difficulty swallowing, dizziness. RESPIRATORY: Denies dyspnea, cough, wheezing, hemoptysis, sputum. CARDIOVASCULAR: Denies chest pain, palpitations, orthopnea, edema, GASTROINTESTINAL: Denies nausea, vomiting, abdominal pain. : Denies dysuria, frequency, incontinence, hematuria, urinary retention. MUSCULOSKELETAL: See HPI SKIN: Denies rash, skin lesions, or other NEUROLOGIC: Denies weakness, headache, numbness, change in speech, confusion, seizures, incoordination. PSYCHIATRIC: No concerning psychosocial issues. 12 point review of systems is negative except for those stated above Patient History <Liza Johnston PA-C - Last Filed: 08/20/23 14:58> Medical History Anxiety Depression Abrasion of left knee (12/28/19) Breast cancer, right (09/2018) Surgical History History of bilateral tubal ligation Hx of cholecystectomy (1996) Hx of bilateral mastectomy (01/2019) Hx of right knee surgery Hx of arthroscopy of right knee Status post delivery (12/18/97) Family History Mother History of diabetes mellitus, type II History of hypertension History of hyperlipidemia History of stroke Social History household members: none Smoking Status: Unknown if ever smoked alcohol intake: current Smoking Status: Unknown if ever smoked alcohol intake frequency: holidays/special occasions only Substance Use Type: does not use Exam <Liza Johnston PA-C - Last Filed: 08/20/23 14:58> Narrative Exam Narrative: GENERAL: 58 year old patient appears stated age. Well-developed patient, in no distress. HEAD: Atraumatic. Normocephalic. EYES: Pupils equal round and reactive. Extraocular motions intact. No scleral icterus. No injection or drainage. ENT: Nose without bleeding, purulent drainage. NECK: Trachea midline. Non tender, no LAD. No cervical tenderness. CARDIOVASCULAR: Regular rate and rhythm without murmurs, gallops, or rubs. RESPIRATORY: Clear to auscultation. Breath sounds equal bilaterally. No wheezes, rales, or rhonchi. GASTROINTESTINAL: Abdomen soft, non-tender, nondistended. Normoactive bowel sounds. EXTREMITIES: Mild deformity over dorsal left wrist with exquisite tenderness at the distal radius. Also tender over the scaphoid. 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 Cap refill on observable due to nail Mongolian. BACK: Nontender without deformity or crepitance. No flank tenderness. NEURO: AOx3. SKIN: No rash or erythema of visible areas Initial Vital Signs Initial Vital Signs: Vital Signs Temperature 97.0 F L 08/20/23 13:32 Pulse Rate 65 08/20/23 13:32 Respiratory Rate 15 08/20/23 13:32 Blood Pressure 131/76 08/20/23 13:32 Pulse Oximetry 98 08/20/23 13:32 Oxygen Delivery Method Room Air 08/20/23 13:32 <Shira Campbell DO - Last Filed: 08/27/23 02:51> Initial Vital Signs Initial Vital Signs: Vital Signs Temperature 97.0 F L 08/20/23 13:32 Pulse Rate 65 08/20/23 13:32 Respiratory Rate 15 08/20/23 13:32 Blood Pressure 131/76 08/20/23 13:32 Pulse Oximetry 98 08/20/23 13:32 Oxygen Delivery Method Room Air 08/20/23 13:32 Procedures <Liza Johnston PA-C - Last Filed: 08/20/23 14:58> Orthopedic Splinting/Casting Injury #1: Side: left Upper Extremity Injury Location: wrist Other Orthopedic Equipment: other Post splinting neuro exam: intact Post splinting vascular exam: intact Placed by: Nursing Course <Liza Johnston PA-C - Last Filed: 08/20/23 14:58> Orders Ordered: Discontinued Medications Oxycodone/Acetaminophen (Oxycodone/Acetaminophen 5/325 Tablet) 2 tab PO NOW ONE Stop: 08/20/23 14:15 Last Admin: 08/20/23 14:16 Dose: 2 tab Documented By: JACQUELIN Vital Signs Vital signs: Vital Signs - 8 hr 08/20/23 13:32 08/20/23 14:12 08/20/23 14:37 Temperature 97.0 F L 98.6 F Pulse Rate 65 75 67 Respiratory Rate 15 18 18 Blood Pressure 131/76 146/91 H 144/86 H Pulse Oximetry 98 99 98 Oxygen Delivery Method Room Air Room Air Room Air <Shira Campbell DO - Last Filed: 08/27/23 02:51> Orders Ordered: Discontinued Medications Oxycodone/Acetaminophen (Oxycodone/Acetaminophen 5/325 Tablet) 2 tab PO NOW ONE Stop: 08/20/23 14:15 Last Admin: 08/20/23 14:16 Dose: 2 tab Documented By: JACQUELIN Vital Signs Vital signs: Vital Signs - 8 hr 08/20/23 13:32 08/20/23 14:12 08/20/23 14:37 Temperature 97.0 F L 98.6 F Pulse Rate 65 75 67 Respiratory Rate 15 18 18 Blood Pressure 131/76 146/91 H 144/86 H Pulse Oximetry 98 99 98 Oxygen Delivery Method Room Air Room Air Room Air MDM - Extremity Injury (Upper) <Liza Johnston PA-C - Last Filed: 08/20/23 14:58> Differential Diagnosis Differential diagnosis: Likely fracture of wrist and fracture of hand Imaging Data Extremity x-ray #1: Radiologist's Impression: PROCEDURE: XR WRIST LT MIN 3V INDICATIONS: fall wrist injury TECHNIQUE: 4 views of the wrist were acquired. COMPARISON: [facility], WRIST MINIMUM 3 VIEWS RIGHT, 09/19/2016, 16:50. FINDINGS: Bones: Acute comminuted and impacted distal radial fracture is seen with dorsal displacement and angulation at fracture site. 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 No other fracture or dislocation. Soft tissues: No suspicious soft tissue calcifications. IMPRESSION: Acute comminuted and impacted distal radial fracture as above. Dictated by: Louis Valentine M.D. on 08/20/2023 at 14:23 Approved by: Louis Valentine M.D. on 08/20/2023 at 14:25 [facility] Narrative Medical decision making narrative: 58-year-old female with a FOOSH with x-ray results showing a acute comminuted and impacted distal radius fracture. Patient was also seen and evaluated by who applied traction during the splinting procedure on the distal radius. She was placed in a splint and discharged to home with follow-up with Orthopedics. Patient agreed with plan. Patient was seen and evaluated by Dr. Campbell. Discharge Plan Departure Patient Disposition: Home Clinical Impression: Fracture of radius Qualifiers: Encounter type: initial encounter Instructions: DI for Distal Radius Fracture Activity Restrictions/Additional Instructions: You have a distal radius fracture with some mild displacement which was splinted today. Please call Dr. Hawk office on Tuesday to schedule a follow-up appointment. You can take oxycodone 1 tablet every 4-6 hours as needed and interspersed that with Tylenol 500 mg 2-3 of those tablets every 4-6 hours not to exceed 4000 mg in a day. Please return to the ER for any new onset more painful swelling or numbness in your fingers. It was a pleasure to care of you today. Prescriptions: New hydrocodone-acetaminophen 7.5-325 mg tablet 1 tab PO Q4-6H PRN (Reason: pain) Qty: 14 0RF oxycodone 5 mg capsule 5 mg PO Q6H PRN (Reason: pain) Qty: 20 0RF Continued oxycodone 5 mg Tablet 5 mg PO Q4HR PRN (Reason: Pain, Moderate (4-6)) Qty: 20 0RF Discontinued oxycodone-acetaminophen 5-325 mg tablet 1 tab PO Q6H PRN (Reason: pain) Qty: 12 0RF No Action ibuprofen 200 mg Capsule 400 mg PO Q6H PRN (Reason: Pain) acetaminophen [Tylenol Extra Strength] 500 mg Tablet 1,000 mg PO Q6H PRN (Reason: Pain) lidocaine 5 % Adhesive Patch,Medicated 1 patch TOPICAL BEDTIME PRN (Reason: Pain) hydroxyzine HCl 25 mg Tablet 50 mg PO BEDTIME Excedrin Migraine 250-250-65 mg Tablet 1 tab PO Q4-6H PRN (Reason: Migraine Headache) duloxetine 30 mg Capsule,Delayed Release(Dr/Ec) 30 mg PO DAILY anastrozole 1 mg PO BEDTIME hydroxyzine pamoate 25 mg Capsule 25 mg PO Q6HR PRN (Reason: Spasms) Qty: 30 0RF Referrals: Zeny Smith PA-C [Primary Care Provider] - Edward Hawk MD [Physician] - Stand Alone Forms: Patient Portal/API ED Sign-out <Shira Campbell DO - Last Filed: 08/27/23 02:51> Cosign ED Attending Coseugeniaature Attestation: I was immediately available in the department for consultation. Case was discussed imaging was reviewed. Patient did have splint placed by nursing with myself and had direct pressure over the distal radial fracture to improve alignment. Reviewed need for follow up with Orthopedic surgery. Patient neurovascularly intact pre and post splint..
== END 2023-08-20 14:56 | disposition home or self-care (01) ==
PROVIDERS: Emergency Provider Physician Assistant; PCP Physician Assistant
DX: S52.502A Unspecified fracture of the lower end of left radius, initial encounter for closed fracture (principal); W01.0XXA Fall on same level from slipping, tripping and stumbling without subsequent striking against object, initial encounter; Y93.K1 Activity, walking an animal
CPT/HCPCS: 29125; 73110; 99283

== ENCOUNTER → 2023-12-05 12:04 | Outpatient (CLI) | payer MEDICARE, SELFPAY | LOC: RESP 12:06 | PROVIDERS: PCP Physician Assistant; Referring Provider Orthopaedic Surgery Adult Reconstructive Orthopaedic Surgery; Visit Provider Orthopaedic Surgery Adult Reconstructive Orthopaedic Surgery | DX: Z01.818 Encounter for other preprocedural examination (principal) | CPT/HCPCS: 93005; 93010 ==

== ENCOUNTER 2024-02-03 11:14 | Day surgery (SDC) | payer MEDICARE, MEDICAID, SELFPAY ==
[2024-01-25 09:47] VITALS: BMI 34.7
[2024-02-03] VITALS (18 sets, daily range): BP systolic 118–158; BP diastolic 47–93; PULSE 63–95; RESP 10–18; TEMP 36.4–37.2; O2SAT 92–100; BMI 34.7
--- NOTE | 2024-02-03 06:00 | DI.RAD.S_ITS ---
PROCEDURE: XR KNEE RT 1TO2V INDICATIONS: TKA TECHNIQUE: 2 view(s) of the knee acquired. COMPARISON: [facility], , XR KNEE RT 1TO2V, 12/28/2019, 21:04. FINDINGS: Bones: Patient is status post knee joint arthroplasty. Hardware components are in expected positions. Visualized bony structures are intact. Soft tissues: Overlying postoperative changes are noted. IMPRESSION: Expected post-operative appearance of a knee arthroplasty. Dictated by: Carolynn Sr M.D. on 02/03/2024 at 17:30 Approved by: Carolynn Sr M.D. on 02/03/2024 at 17:31
[2024-02-03] MEDS: LACTATED RINGERS 1,000 ML 42 ML IV ×2 (13:07→15:57)
[2024-02-03] MEDS: MELOXICAM 7.5 MG TABLET 15 MG PO (13:08)
[2024-02-03] MEDS: ACETAMINOPHEN 325 MG TABLET 975 MG PO (13:09)
[2024-02-03] MEDS: SODIUM CHLORIDE 0.9% FLUSH 10 ML IV (13:10)
--- NOTE | 2024-02-03 13:29 | PM.PREOP ---
Pre-operative Note Interval Note History & Physical reviewed/Exam performed by Physician: Yes Changes to H&P: No
[2024-02-03] MEDS: CEFAZOLIN 2 GM/100 ML PREMIX 100 ML IV ×2 (14:02→22:07)
[2024-02-03] MEDS: TRANEXAMIC ACID 1,000 MG VIAL 1000 MG INJ ×2 (14:06→15:15)
--- NOTE | 2024-02-03 14:20 | SUR.OPER ---
Supine on padded OR bed. Pillow under head, arms secured on padded armboards <90 degree abduction. Safety belt across torso. Non-operative leg secured with tape over blanket over lower leg. Operative leg secured in Mina boot positioner. Foam padded brace at thigh of operative leg.
[2024-02-03] MEDS: ROPIVACAINE/EPI/CLONIDINE/KET 50 ML SYRINGE INJ (14:25)
--- NOTE | 2024-02-03 16:17 | P.OP_ITS ---
Operative Date/Time/Diagnoses Date of procedure: 02/03/24 Pre-op diagnosis: Right knee osteoarthritis Post-op diagnosis: same Procedure & Clinicians Procedure: Right total knee arthroplasty Same procedure as scheduled: Yes Surgeon: Edward Hawk Automation Specialist: Codie Larose Anesthesia Type: Spinal, Peripheral nerve block and Local Operative Notes Estimated Blood Loss (mL): 200 Procedure in detail: Right Josiane persona Primary Total Knee Arthroplasty Implants: Josiane Persona CPS Total Knee Arthroplasty: * Size 8 posterior stabilized Femoral Component * Size F Tibial Component with 14 mm x 30 mm stem extension * Size 12 CPS Polyethylene Insert * Unresurfaced Patella Procedure Summary: This 58-year-old female patient had a history of a prior open knee surgery performed at our clinic. She described it to me as ?a debridement? but had a large anterior based scar over the anterior knee roughly the same size and location as would be utilized for a knee replacement. We had not previously discussed the surgery prior to today but in the preoperative holding area I noted the large scar on her knee. We have no records of the operative report from that procedure in our electronic medical record as the procedure pre dates the implementation of our electronic medical record. I spoke with the surgeon who had performed that procedure today, and she had no recollection of the specifics of the patient's case. 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 During the initial portion of the procedure I did note a band of tissue extending from the anteromedial aspect of the tibial tubercle towards the medial retinacular tissues. I had come through this tissue while making my arthrotomy. Assuming that it had been a portion of the retinacular tissues medial to the patellar tendon I repaired it to the patellar tendon however given the instability which developed in the MCL, it may have been a prior MCL reconstruction which had been performed during that previous large open procedure, the details of which I remain unaware of. The MCL also could have been injured during a posterior medial release I performed for medial tightness in extension after making the proximal tibial and distal femoral cuts. Regardless, she initially developed medial laxity in flexion and I therefore transitioned from utilizing a gap balanced technique to a measured resection technique to set my femoral rotation. Later she would also develop medial laxity in extension although interestingly during initial gap balancing of the extension gap she had a firm endpoint with valgus stress when using the gap wood last maker. I utilized a constrained posterior stabilized insert to compensate for her medial laxity and oversewed the medial tissues at the conclusion of the procedure. The CPS insert did improve the medial laxity in both extension and flexion. Procedure in Detail: This patient was seen preoperatively and evaluated for knee pain which was refractory to numerous nonoperative treatment modalities. Their pain correlated with radiographic changes demonstrating significant degeneration in the knee joint. The risks and benefits of continued nonoperative management versus operative management were discussed at length and all of the patient?s questions were answered. Additional educational materials providing further details beyond our discussion in clinic were provided via a publicly available patient education video which included the incidence of medical complications associated with total knee arthroplasty, reasons for revision following total knee arthroplasty, and patient satisfaction rates following total knee arthroplasty. That video can be accessed at [email or web address] . With this understanding of the risks inherent to the procedure, the patient elected to move forward with operative management. Following preoperative optimization, the patient was scheduled for surgery. The patient was met in the preoperative holding area the day of the procedure and all questions were answered. The patient?s nares were swabbed with betadine in order to decolonize them from MRSA. Informed consent was signed and the operative limb was marked with indelible ink.? The patient was brought back to the operating room where anesthesia was induced. The patient was transferred to the operating table and all bony prominences were padded. The operative site was prepped and draped in the usual sterile fashion. A second prep stick was utilized following drape placement. The incision was marked corresponding to the medial aspect of the tibial tubercle and the patella. Ioban was wrapped circumferentially around the knee. Prior to incision, tranexamic acid and cefazolin were administered. Templating images were displayed. A timeout procedure was performed verifying the patient?s identity, medical comorbidities, allergies, relevant medications, anesthesia type and the surgical plan. All present were in agreement. The assistance of a physician technical administrative assistant was required for positioning, room setup, soft tissue retraction and wound closure. Without this assistance, the procedure would have been significantly more challenging and time consuming.?? The tourniquet was inflated prior to incision. I made an anterior incision over the knee, dissected through the subcutaneous tissues and identified the lateral border of the VMO. Medial and lateral soft tissue flaps were developed. A medial parapatellar arthrotomy was performed ensuring that adequate capsular tissue would remain for closure at the conclusion of the procedure. The hip was brought into extension and the medial soft tissues were released off the joint line of the tibia. Tissue overlying the distal anterior femur was released to allow for later assessment for anterior notching but left in place. A portion of the retr opatellar fat pad was excised while protecting the patellar tendon. The patella was everted. The patella was not resurfaced. Osteophytes were excised and a lateral facetectomy was performed. The patella was released from its everted position.?? I flexed the knee to 90 degrees and placed retractors to allow access to the notch. An opening reamer was used to gain access to the femoral canal and an i ntramedullary magdi was introduced into the canal. Diaphyseal fit was obtained in order to allow a distal femoral resection at 5 degrees relative to the anatomic axis, thereby aiming to achieve mechanical alignment of the eventual implant. A +1 resection was planned and assessed using an chetna wing. I then made the cut using a sagittal saw. This provided additional access to the femoral notch. The ACL and PCL were excised. Retractors were placed on the lateral and medial tibia. I hyperflexed the knee while externally rotating it to sublux the tibia anteriorly. I placed a PCL retractor posteriorly and used this to provide additional anterior subluxation. The remainder of the PCL root was released. An intramedullary reamer was used in the ACL footprint to provide access to the tibial canal. An extramedullary guide was positioned to allow a resection perpendicular to the anatomic and mechanical axes of the tibia, thereby aiming to achieve mechanical alignment of the eventual implant. A +4 resection off the medial tibia was planned and the tibial cutting jig was pinned in place. I evaluated the cut depth, varus-valgus alignment and slope of the planned tibial resection and deemed them satisfactory. I cut the tibia with a sagittal saw while using retractors to protect the MCL, patellar tendon, and posterolateral structures.? The knee was repositioned in extension and the Fuzion soft tissue balancing gauge was introduced. This demonstrated that there was excess tension in the medial compartment relative to the lateral compartment. I therefore performed a posterior medial release including resecting some osteophytes off the proximal tibia. This resulted in a balanced extension gap, opening to 7 both medially and laterally. When 50 pounds of force was applied to the Fuzion device, the extension gap opened to 10 mm. I moved the knee into 90 degrees of flexion, and the Fuzion device was recalibrated by removing a 9 mm miguel a to allow assessment of the flexion gap. The Fuzion was placed perpendicular to the resected surface of the tibia and the resected surface of the distal femur. Fifty pounds of traction was applied to match the tension of the extension gap. This internally rotated the femur to 7 degrees. Being concerned based on the lack of medial tensioned to externally rotate the gap wood last maker, I returned to extension to evaluate whether or not the MCL had been injured. At that point in time I still had a firm endpoint with valgus stress and extension and the gap wood last maker indicated equal tension between the medial and lateral compartments. I returned to flexion and again evaluated femoral rotation balancing with the gap wood last maker and again had significant internal rotation. I therefore transitioned to a measured resection technique and used a 3 degree external rotation cut block. Pins were placed. The femur was sized. Appropriate sizing was determined and a 4-in-1 block was placed. The Fuzion block was also used to assess flexion gap symmetry and I again noted excessive medial opening indicative of MCL injury. An chetna wing was used to ensure there would be no anterior notching. Retractors were placed to protect the soft tissues during resection. Captured cuts were performed with a sagittal saw for the anterior and posterior femur as well as the corresponding chamfers.? Trial components were placed and the construct was assessed. Range of motion was assessed by ensuring the knee could achieve full extension and assessing maximum passive knee flexion by elevating the femur and allowing the heel to passively fall towards the buttock. Gap symmetry was assessed by stressing the medial and lateral compartments in both extension and flexion. Laxity was assessed in both extension and flexion and the polyethylene trial was adjusted with shims as necessary. Patellar tracking was assessed with knee flexion. The patella tracked appropriately, the knee was able to achieve full extension, the knee had appropriate passive flexion, but it still had excess medial laxity still in flexion and now also in extension at this point in the procedure. The femoral box was prepped. Lug holes were drilled in the femur and the tibia was prepped ensuring appropriate sizing and rotation relative to the tibial tubercle.?? The bony ends were irrigated and cement was prepared. Portions of the anterior chamfer cut were utilized as cement restrictors in the femur and tibia where intramedullar rods had been utilized. Cement was placed on the entirety of the undersurface of both the tibial and femoral components. Cement was placed onto the dry tibia and pressurized into the cancellous bone. I impacted the tibial component into place. Cement was removed. The tibia was reduced underneath the femur and placed cement onto the dry surface of the resected femur. I placed the femoral component as well as the intended polyethylene trial. Cement was removed from around the femur. I brought the knee into extension and manually pressurized the construct by pushing on the heel while the cement dried. The knee was bathed in a dilute mixture of betadine and peroxide. A mixture of Ropivacaine, Epinephrine, Clonidine and Toradol was infiltrated throughout the soft tissues into structures including the VMO, patellar tendon, quadriceps tendon, MCL and femoral periosteum. A low adductor canal block was also performed using this mixture unless one had been placed preoperatively by anesthesia. The knee was copiously irrigated with pulse lavage. Once cement had been allowed to dry the knee was again trialed. Range of motion was assessed by ensuring the knee could achieve full extension and assessing maximum passive knee flexion by elevating the femur and allowing the heel to passively fall towards the buttock. Gap symmetry was assessed by stressing the medial and lateral compartments in both extension and flexion. Laxity was assessed in both extension and flexion and the polyethylene trial was adjusted with shims as necessary. Patellar tracking was assessed with knee flexion. The tourniquet was let down and the polyethylene trial was removed. I inspected the knee inspected for excess cement and any residual bleeding. Once hemostasis was achieved I inserted the final polyethylene and ensured appropriate engagement of the dovetail locking mechanism.?? The arthrotomy was closed with absorbable interrupted suture ensuring that this extended to the top of the arthrotomy. This was backed up with running barbed suture throughout the arthrotomy. The skin was closed with 2-0 and 3-0 sutures. Surgical glue was applied and a soft dressing was placed.?The sponge, instrument and needle counts were reported as being correct at the end of the case.??No obvious complications occurred. The patient was transferred from the operating table back to a stretcher. The patient emerged from anesthesia without difficulty and was taken to the PACU in a stable condition.? Plan for aftercare: * Weightbearing as tolerated * Mobilization as soon as the patient has recovered from anesthesia. If physical therapists are unavailable at the time the patient is ready to ambulate, then nursing staff should help patient ambulate * Aspirin 81 twice per day for DVT prophylaxis * Multimodal pain regimen with no IV opioids ordered * Anticipate discharge home tomorrow * Follow up at [facility] in 2 weeks * Detailed postoperative instructions available at [email or web address]
[2024-02-03] MEDS: HYDROMORPHONE 1 MG INJ IV ×3 (16:21→16:39)
[2024-02-03] MEDS: hydrOXYzine 50 MG/ML INJ 25 MG IM (16:23)
[2024-02-03] MEDS: OXYCODONE IR 5 MG TABLET PO ×3 (16:40→22:06)
--- NOTE | 2024-02-03 17:11 | P.PN_ITS ---
Subjective Subjective Interval history: Patient seen postoperatively. Sensation intact to light touch in L2 through S1 nerve distributions. Flexing extending hallux and ankle. Palpable DP pulse. Again discussed her prior knee surgeries with her. She does not have any specific recollection of the details of her surgeries, reporting that she believes the large anterior based incision was from a surgery performed by Dr. Escobedo but that she also had surgery in [place]. These were all performed remotely. She does not recall whether or not there were any ligamentous reconstructions or repairs. This may very well have been a factor in the development of her MCL instability intraoperatively. The MCL instability was managed with a CPS polyethylene insert. I will have her use an unlocked hinged knee brace for 6 weeks to protect her MCL while her soft tissues heal postoperatively. She can remain weight-bearing as tolerated. We will continue with her routine postoperative course other than the addition of that hinged knee brace. Exam Vital Signs (past 8 hours): - 02/03/24 12:41 02/03/24 12:55 02/03/24 16:17 Temperature 97.6 F 97.5 F L Pulse Rate 79 73 78 Respiratory Rate 18 16 12 Blood Pressure 150/90 H 158/90 H 118/47 L Pulse Oximetry 99 99 92 Oxygen Delivery Method Room Air Room Air Room Air Oxygen Flow Rate 02/03/24 16:22 02/03/24 16:27 02/03/24 16:31 Temperature Pulse Rate 72 72 70 Respiratory Rate 13 13 10 L Blood Pressure 143/72 H 132/65 134/76 Pulse Oximetry 93 92 97 Oxygen Delivery Method Room Air Room Air Oxygen Flow Rate 02/03/24 16:36 02/03/24 16:41 02/03/24 16:47 Temperature Pulse Rate 79 79 63 Respiratory Rate 12 10 L 10 L Blood Pressure 144/83 H 144/83 H 142/77 H Pulse Oximetry 94 97 100 Oxygen Delivery Method Room Air Room Air Nasal Cannula Oxygen Flow Rate 3 02/03/24 16:52 02/03/24 16:57 02/03/24 17:01 Temperature 97.5 F L Pulse Rate 75 75 67 Respiratory Rate 12 12 11 L Blood Pressure 148/68 H 141/75 H 143/79 H Pulse Oximetry 100 100 100 Oxygen Delivery Method Nasal Cannula Room Air Nasal Cannula Oxygen Flow Rate 3 3 Oxygen Delivery Method Nasal Cannula Oxygen Flow Rate 3 [facility] Medical History (Updated 01/25/24 @ 10:20 by Blanca Marshall, RN) History of COVID-19 (2022) Leukopenia Anemia Anxiety Depression Abrasion of left knee (12/28/19) Breast cancer, right (09/2018) Surgical History (Updated 01/25/24 @ 10:11 by Blanca Marshall, RN) History of breast surgery H/O left wrist surgery (07/2023) History of open reduction and internal fixation (ORIF) procedure (01/04/20) History of bilateral tubal ligation Hx of cholecystectomy (1996) Hx of bilateral mastectomy (01/2019) Hx of right knee surgery Hx of arthroscopy of right knee Status post delivery (12/18/97) Family History Mother History of diabetes mellitus, type II History of hypertension History of hyperlipidemia History of stroke Social History household members: none Smoking Status: Never smoker alcohol intake: current
[2024-02-03] MEDS: LACTATED RINGERS 1,000 ML 100 ML IV (17:30)
[2024-02-03] MEDS: IBUPROFEN 600 MG TABLET PO (17:33)
[2024-02-03] MEDS: ACETAMINOPHEN 325 MG TABLET 650 MG PO (17:33)
--- NOTE | 2024-02-03 18:23 | PC.NURSE ---
Patient arrived to Room 216 at 1720 this evening, A&OX4. VSS, afebrile, weaned to RA 97%.She initially reports pain 7/10. She is assisted to reposition, given scheduled Tylenol and Ibuprofen, applied ice machine. Upon reassessment she states pain is 5/10. +CMS to RLE, weakness. Tello wrap c/d/i. IVF LR running at 125ml/hr, SCD's placed, bed alarm on, call light in reach. She tolerates dinner well, daughter supportive at bedside.
[2024-02-03] MEDS: GABAPENTIN 300 MG CAPSULE PO (22:06)
[2024-02-03] MEDS: TRAZODONE 50 MG TABLET PO (22:06)
[2024-02-03] MEDS: ASPIRIN EC 81 MG TABLET PO (22:07)
[2024-02-03] MEDS: DOCUSATE 100 MG CAPSULE PO (22:07)
[2024-02-04 00:06] VITALS: BP 113/61; PULSE 78; RESP 16; TEMP 35.8; O2SAT 95
[2024-02-04 05:09] VITALS: BP 106/60; PULSE 80; RESP 17; TEMP 35.7; O2SAT 97
[2024-02-04] MEDS: IBUPROFEN 600 MG TABLET PO (05:09)
[2024-02-04] MEDS: ACETAMINOPHEN 325 MG TABLET 650 MG PO (05:10)
[2024-02-04] MEDS: CEFAZOLIN 2 GM/100 ML PREMIX 100 ML IV (05:29)
[2024-02-04] MEDS: OXYCODONE IR 5 MG TABLET PO ×2 (05:29→08:40)
[2024-02-04 06:09] LABS: Hematocrit 34.2 % (36-46); Hemoglobin 11.8 g/dL (12.0-16.0)
[2024-02-04 08:00] VITALS: BP 112/52; PULSE 72; RESP 16; TEMP 36.2; O2SAT 99
[2024-02-04] MEDS: DOCUSATE 100 MG CAPSULE PO (08:41)
[2024-02-04] MEDS: ASPIRIN EC 81 MG TABLET PO (08:41)
[2024-02-04] MEDS: ANASTROZOLE 1 MG TABLET PO (08:41)
[2024-02-04] MEDS: DULOXETINE 30 MG CAPSULE 60 MG PO (08:41)
--- NOTE | 2024-02-04 09:15 | PT.IIE ---
Current Diagnoses Unilateral primary osteoarthritis, right knee (02/03/24) Surgery Performed Operation Date: 02/03/24 13:45 Actual Procedures p Total Knee Arthroplasty(Right) - Edward Hawk MD Surgical History (Last Updated 01/25/24 @ 10:11 by Blanca Marshall RN) H/O left wrist surgery (07/2023) History of bilateral tubal ligation History of breast surgery History of open reduction and internal fixation (ORIF) procedure (01/04/20) Hx of arthroscopy of right knee Hx of bilateral mastectomy (01/2019) Hx of cholecystectomy (1996) Hx of right knee surgery Status post delivery (12/18/97) Medical History (Last Updated 01/25/24 @ 10:20 by Blanca Marshall RN) Abrasion of left knee (12/28/19) Anemia Anxiety Breast cancer, right (09/2018) Depression History of COVID-19 (2022) Leukopenia Physical Therapy Inpatient Evaluation/Re-Eval M1 PT/OT-IP Prior Functional Status Start: 02/04/24 11:45 Freq: NEEDED Status: Active Protocol: Document 02/04/24 09:15 AB (Rec: 02/04/24 12:11 AB [id number]) Medical Review Prior Functional Status Medical History Reviewed Yes Communication able to make needs known Mobility and Gait pt stated that she was independent with all mobilities and ambulation without AD Social History Household Members none Living Arrangements House Number of Stairs To Enter/Railing? 1 step to enter Home Environment Standard Height Toilet,Tub/ Shower Home Equipment Front Wheel Walker,Four Wheel Walker,Raised Toilet Seat Without Armrests,Shower Seat with Backrest,Hand Held Shower ,Grab Bars In Shower Additional Social History Comment pt has a hurrycane pt has a R side bed rail pt's daughter will stay with her until tomorrow and then afterwards, a friend can come over to assist her if needed M2 PT-IP Current Condition Start: 02/04/24 11:45 Freq: NEEDED Status: Active Protocol: Document 02/04/24 09:15 AB (Rec: 02/04/24 12:11 AB [id number]) Physical Therapy Current Condition Current Condition Evaluation Date 02/04/24 Treatment Diagnosis s/p R TKA; difficulty in walking Onset Date 02/03/24 M3 PT-IP Subjective Start: 02/04/24 11:45 Freq: NEEDED Status: Active Protocol: Document 02/04/24 09:15 AB (Rec: 02/04/24 12:11 [id number]) Subjective Physical Therapy Visit Type Type Initial Evaluation Visit Start Time 09:15 Visit Stop Time 10:[address] Hawk's progress note: hinge knee brace for RLE but no order/parameters mentioned. Talked with MUNIR martinez and stated that she will put in the order. R hinged brace unlock and not need for any flexion/extension range setting and brace on at all time except for showers. Number of CLIENT COORDINATOR Visits 0 Physical Therapy Visit Comments Patient Comments agreeable to do PT Therapy Pain Assessment Pain When Pain Assessed At Rest Pain Present Pain Present Pain Reported Location Right Knee Intensity 2 Scale Used Numeric (0 - 10) Pain Management Techniques Apply Cold,Distraction, Modification of Treatment,Re- positioning,Timing of Activity with Medications M4 PT-IP Mobility and Gait Start: 02/04/24 11:45 Freq: NEEDED Status: Active Protocol: Document 02/04/24 09:15 AB (Rec: 02/04/24 12:11 [id number]) PT-Bed Mobility Assessment Supine to Sit Supine to Sit Standby Assistance Sit to Supine Sit to Supine Standby Assistance PT-Transfer Assessment Sit to and From Stand Sit to and from Stand Standby Assistance,Contact Guard Assistance,Use of Upper Extremities Equipment Transfer Assistive Device Gait Belt,Front Wheeled Walker Orthotic/Prosthetic Devices or Brace: Yes Transfers Transfer Destination Bed,Chair Transfer Technique ambulated Transfer Ability Level of Assist Standby Assistance,1 Person Assistance,Use of Upper Extremities Comments Mobility Comments pt sitting on the chair. agreed to do PT. obtained PLOF and home set up from pt. fitted pt with hinge brace. pt educated on donning/doffing of brace. pt completed sit to stand from chair CGA and ambulated to EOB CGA. pt completed sit<>supine SBA. pt agreed to do stairs. completed sit to stand from EOB SBA and ambulated to the platform step using FWW SBA. completed up/down step using FWW CGA. pt ambulated in the hallway using FWW ~ 50 ft SBA. pt completed up/down platform step again SBA using FWW. pt ambulated back to her room and sat on the chair. positioned pt on the chair. call light and table placed within reach. pt without any other concerns. Gait Assessment Gait Gait Assistance Required: Standby Assistance,Contact Guard Assist Distance (Feet) 50 Able to Maintain Weight Bearing Status Yes During Gait Assistive Devices Assistive Device Gait Belt,Front Wheeled Walker Orthotic/Prosthetic Devices or Brace: No Gait Deviations General Gait Pattern Antalgic,Decreased Stride Length,Decreased Feet Clearance Factors Limiting Gait Function Factors Limiting Gait Function Decreased Activity Tolerance, Decreased Strength,Limited Range of Motion,Pain,Poor Balance Stair Climbing Assessment Evaluation Level of Assist On Stairs Contact Guard Assistance Devices Stair Climbing Assistive Devices Front Wheel Walker Technique/Endurance Stair Climbing Direction Ascend and Descend Stair Climbing Technique Step to Step Number of Steps Climbed 1 Query Text: Stair Climbing Set # Repetitions (reps) 2 PT-Balance Assessment Sitting Balance and Reactions Static Sitting Balance Ability Normal Dynamic Sitting Balance Ability Normal Standing Balance and Reactions Static Standing Balance Ability Good Dynamic Standing Balance Ability Fair Device Used FWW M5 PT-IP Objective Assessments Start: 02/04/24 11:45 Freq: NEEDED Status: Active Protocol: Document 02/04/24 09:15 AB (Rec: 02/04/24 12:11 [id number]) Orientation Orientation/Cognition Level of Alertness Alert Orientation Name,Place,Situation Language Function Ability No Deficits Noted Safety Awareness Understands Safety Issues Memory Description No Deficits Noted Gross Range of Motion Lower Extremity ROM Assessment Within Functional Limits Strength Lower Extremity Strength Assessment Right Impaired Hip 3-/5 Knee 3+/5 Sensation Assessment Sensation Gross Sensation WNL Muscle Tone Muscle Tone WNL Yes M6 PT-IP Treatment Start: 02/04/24 11:45 Freq: NEEDED Status: Active Protocol: Document 02/04/24 09:15 AB (Rec: 02/04/24 12:11 AB [id number]) Physical Therapy Treatment Education Education Provided Precautions,Weight Bearing Status,Post-Op Packet,Safety M7 PT-IP Assessment and Plan Start: 02/04/24 11:45 Freq: NEEDED Status: Active Protocol: Document 02/04/24 09:15 AB (Rec: 02/04/24 12:11 AB [id number]) PT Summary Assessment and Plan Potential Rehabilitation Potential Fair Status of Condition at Evaluation Stable Summary Impairments Pain,ROM,Strength,Balance,Bed Mobility,Transfers,Gait, Activity Tolerance Assessment Summary pt is a 58 y/o F s/p R TKA POD 1. pt is WBAT on RLE. pt provided R knee hinged brace per ortho doctor's order. pt requiring SBA with ambualtion using fWW and CGA for stair climbing. pt plans to go home and her daughter and friend will assist if needed. pt may go home when medically stable. pt stated that she has outpt PT scheduled. Goals Bed Mobility Goal Independent Transfer Goal Independent,Front Wheeled Walker Gait Goal Independent,Front Wheel Walker Gait Distance 200 Other Goals up/down 1 step using FWW mod I Days to Meet Goals 5 Frequency of Treatment Frequency Of Treatment Twice a Day Treatment Plan Physical Therapy Treatment Plan Bed Mobility Training,Transfer Training,Gait Training, Therapeutic Exercise,Balance Retraining,Post Op Education, Discharge Planning,Hot or Cold Pack,Neuromuscular Re-ed, Coordination Retraining,Manual Therapy Precautions Brace R knee hinged brace: on at all times except during showers Weight Bearing Status Weight Bearing Status Weight Bear as Tolerated Allowed Weight Bearing Amount (enter % RLE WBAT or #) (%) Recommendations To Nursing Amount of Assist Needed 1 Person Assist Discharge Recommendations PT Discharge Recommendations Home with Assistance, Outpatient PT Transportation Needs at Discharge Private Vehicle
--- NOTE | 2024-02-04 11:07 | CM.DANOTE ---
Initial DCP Assessment Note Pt is a 58yo female, resident of [place], now POD#1 from Rt knee surgery by Dr Hawk PCP: Zeny Smith Payer: [employer] spend down program Reviewed chart, pt discussed in multidisciplinary rounds this morning. Therapy is pending this morning Met with patient to introduce self and role. Patient reports living alone, indp in all aspects. Patient receives disability benefits. No Hx of HH or SNF. Patient plans to return home w/daughter and friend to assist throughout her recovery. PT eval/note still pending although no barriers identified at this time to patient's safe discharge home w/family to assist; close outpatient f/u recommended. CM team will plan to follow closely in case any DC needs or concerns arise. NEAL Santos Discharge Planning/Care Management CM Discharge Assessment Start: 02/04/24 10:55 Freq: Status: Active Protocol: Document 02/04/24 10:55 MICHEAL (Rec: 02/04/24 11:07 MICHEAL [id number]) Discharge Planning Assessment Assigned Vice President Of Operations NEAL Bob DPOA/Assigned Designee Name reilly Ca Contact Information [phone] Advance Directives? Yes Advance Directives on File Yes History Provided By Patient,Medical Record Prior Living Arrangements House Household Members none Type of transporation used prior to Drives own vehicle admit Independent with ADL's Yes Is patient alert and oriented? Yes Patient/Family Preference OP PT Therapy Barriers to Discharge No Discharge Plan Home Transportation Arrangement Family Referrals Initiated None needed
--- NOTE | 2024-02-04 11:18 | P.DS_ITS ---
History of Present Illness History of Present Illness Chief complaint: Right Total Knee Arthroplasty Narrative: Aliya is a 58 year old female who is POD#1 s/p R TKA by Dr. Hawk. Today she reports she is doing well overall, she rates pain as mild-moderate, mostly just bothersome when she has to move/bend her knee. Her daughter picked up her postop medications yesterday. She has outpatient physical therapy already arranged. She would like to d/c to home with her daughter today. Her daughter plans to stay with her until she is able to comfortably mobilize with a walker only. She has ice machine, shower bars, cane and walker at home. She currently has a purewik in place but states she was able to get up and ambulate around her room yesterday with assistance and a walker. She has not seen PT yet today. Denies fever, chills, chest pain, SOB, nausea, vomiting. Operative Date/Time/Diagnoses Date of procedure: 02/03/24 Pre-op diagnosis: Right knee osteoarthritis Post-op diagnosis: same Procedure & Clinicians Procedure: Right total knee arthroplasty Same procedure as scheduled: Yes Surgeon: Edward Hawk [employer]: Codie Larose Anesthesia Type: Spinal, Peripheral nerve block and Local Operative Notes Estimated Blood Loss (mL): 200 Procedure in detail: Right Josiane persona Primary Total Knee Arthroplasty Implants: Josiane Persona CPS Total Knee Arthroplasty: * Size 8 posterior stabilized Femoral Component * Size F Tibial Component with 14 mm x 30 mm stem extension * Size 12 CPS Polyethylene Insert * Unresurfaced Patella Discharge Providers Provider Discharge Date: 02/04/24 Primary care physician: Zeny Smith PA-C Consults: 02/03/24 06:00 Consult to Anesthesiology Routine Comment: Consulting Provider: Anesthesiologist Reason for consultation: Regional block for post operative pain control 02/03/24 17:13 Consult to Discharge Planning Routine Comment: Consult to Occupational Therapy Evaluate & Treat Comment: Physician Instructions: Evaluate and treat Consult to Physical Therapy Evaluate & Treat Comment: Physician Instructions: postop TKA protocol Discharge provider: Codie Larose PA-C Summary Hospital Course Discharge Diagnosis: right knee oa s/p right tka Hospital Course: Uncomplicated hospital course Exam Vital Signs (past 8 hours): - 02/04/24 05:09 02/04/24 08:00 Temperature 96.3 F L 97.2 F L Pulse Rate 80 72 Respiratory Rate 17 16 Blood Pressure 106/60 112/52 L Pulse Oximetry 97 99 Oxygen Flow Rate 0 Oxygen Delivery Method Nasal Cannula Oxygen Flow Rate 0 Narrative Exam Narrative: Lying comfortably in bed with SCDs on and functioning during our interview today. Resp Effort & Inspection: normal respiratory effort and able to speak in complete sentences Cardio Rate: regular rate Other: Brisk capillary refill Neuro General: patient alert, patient awake and patient oriented x3 Extrem Other: Grossly normal alignment. Post-surgical dressings intact without drainage. Ice packs are placed onto the right knee. Moderate, global swelling to the RLE. 5/5 strength with DF, PF, EHL. Minimal AROM of the right knee, limited by pain. Gross sensation intact throughout the right lower extremity. Calves soft and nontender bilaterally. Objective Labs 02/04/24 04:55 Labs: Laboratory Results - last 24 hr 02/04/24 04:55 Hgb 11.8 L Hct 34.2 L PFSH Medical History (Updated 01/25/24 @ 10:20 by Blanca Marshall RN) History of COVID-19 (2022) Leukopenia Anemia Anxiety Depression Abrasion of left knee (12/28/19) Breast cancer, right (09/2018) Surgical History (Updated 01/25/24 @ 10:11 by Blanca Marshall RN) History of breast surgery H/O left wrist surgery (07/2023) History of open reduction and internal fixation (ORIF) procedure (01/04/20) History of bilateral tubal ligation Hx of cholecystectomy (1996) Hx of bilateral mastectomy (01/2019) Hx of right knee surgery Hx of arthroscopy of right knee Status post delivery (12/18/97) Family History Mother History of diabetes mellitus, type II History of hypertension History of hyperlipidemia History of stroke Social History household members: none Smoking Status: Never smoker alcohol intake: current Discharge Assessment & Plan Assessment and Plan Assessment: stable s/p R TKA Plan of Treatment: 1) plan to discharge to home today with daughter pending final PT evaluation 2) continue multimodal pain management with ice to the knee for additional pain control. Post-op pain medications have been sent to patients retail pharmacy. 3) ASA b.i.d. for DVT prophylaxis for 6 weeks. 4) Start outpatient physical therapy to work on range of motion and mobility. 5) Keep dressing intact, clean, dry until 2 week postop appointment. No soaking the incision site in pools or tubs. No topical ointments or creams to the incision site. 5) Follow up at [facility] orthopedics in 2 weeks for a postop appointment and wound check. All patient's questions were answered, she demonstrates understanding and is in agreement with the plan. Call our office if any questions or concerns arise. Discharge Plan Discharge Plan Patient Disposition: Home Provider Discharge Comment: h [email or web address] Discharge orders & Medications Discharge Orders: Discharge (Order); Ordered 02/04/24 Ordered By: Codie Larose Prescriptions: New docusate sodium 100 mg Capsule 100 mg PO BID PRN (Reason: constipation) Qty: 30 0RF ibuprofen 600 mg Tablet 600 mg PO Q6H PRN (Reason: pain) Qty: 90 0RF ondansetron 4 mg Tablet,Disintegrating 4 mg PO Q8H PRN (Reason: Nausea And Vomiting) Qty: 10 0RF oxycodone 5 mg Tablet 5 mg PO Q4-6H PRN (Reason: Pain, Severe (7-10)) Qty: 30 0RF aspirin 81 mg Tablet,Delayed Release (Dr/Ec) 81 mg PO BID 42 Days Qty: 84 0RF Continued trazodone 50 mg Tablet 50 mg PO BEDTIME gabapentin 300 mg Capsule 300 mg PO BEDTIME zoledronic acid 4 mg Recon Soln 4 mg IV Q6M anastrozole 1 mg Tablet 1 mg PO DAILY Qty: 0 duloxetine 30 mg Capsule,Delayed Release(Dr/Ec) 60 mg PO DAILY Changed acetaminophen [Tylenol Extra Strength] 500 mg Tablet 1,000 mg PO Q8H PRN (Reason: Pain) Qty: 120 0RF Discontinued ibuprofen 200 mg Capsule 400 mg PO Q6H PRN (Reason: Pain) Excedrin Migraine 250-250-65 mg Tablet 1 tab PO Q4-6H PRN (Reason: Migraine Headache) Follow up/Referrals: Zeny Smith PA-C [Primary Care Provider] - Edward Hawk MD [Physician] - (Follow up at [facility] as scheduled in 2 weeks. Appointment is scheduled for 02/17/2024 at 10:30 a.m..) Diet/Activity/Treatments Diet: Diet as Tolerated Activity: Weight-bearing as tolerated. Work with outpatient PT to improve mobility. Keep hinged knee brace on in the unlocked position. Cold/Heat Therapy: Ice to the knee for additional pain control. Skin/Wound/Dressing Care Report to your healthcare provider any signs of infection, such as:: chills, fever, night sweats, unusual drainage and unusual redness Dressing: Keep dressing intact, clean and dry until 2 week post-op appointment. No soaking the incision site in pools or tubs. No topical ointments or creams to the incision site. Visit Report/Discharge Packet Instructions: DI for Knee Replacement, DI for Prescription Opioid Use Stand Alone Forms: Patient Portal/API Discharge Data Primary Care Provider: Zeny Smith Attending Provider: Edward Hawk
--- NOTE | 2024-02-04 11:38 | PM.DS.1 ---
History of Present Illness History of Present Illness Chief complaint: Right Total Knee Arthroplasty Narrative: Aliya is a 58 year old female who is POD#1 s/p R TKA by Dr. Hawk. Today she reports she is doing well overall, she rates pain as mild-moderate, mostly just bothersome when she has to move/bend her knee. She has no specific complaints. Her daughter picked up her postop medications yesterday. She has outpatient physical therapy already arranged. She would like to d/c to home with her daughter today. Her daughter plans to stay with her until she is able to comfortably mobilize with a walker only. She has ice machine, shower bars, cane and walker at home. She currently has a purewik in place but states she was able to get up and ambulate around her room yesterday with assistance and a walker. She has not seen PT yet today. Denies fever, chills, chest pain, SOB, nausea, vomiting. Operative Date/Time/Diagnoses Date of procedure: 02/03/24 Pre-op diagnosis: Right knee osteoarthritis Post-op diagnosis: same Procedure & Clinicians Procedure: Right total knee arthroplasty Same procedure as scheduled: Yes Surgeon: Edward Hawk Senior Product Consultant: Codie Larose Anesthesia Type: Spinal, Peripheral nerve block and Local Operative Notes Estimated Blood Loss (mL): 200 Procedure in detail: Right Josiane persona Primary Total Knee Arthroplasty Implants: Josiane Persona CPS Total Knee Arthroplasty: Size 8 posterior stabilized Femoral Component Size F Tibial Component with 14 mm x 30 mm stem extension Size 12 CPS Polyethylene Insert Unresurfaced Patella Discharge Providers Provider Discharge Date: 02/04/24 Primary care physician: Zeny Smith PA-C Consults: 02/03/24 06:00 Consult to Anesthesiology Routine Comment: Consulting Provider: Anesthesiologist Reason for consultation: Regional block for post operative pain control 02/03/24 17:13 Consult to Discharge Planning Routine Comment: Consult to Occupational Therapy Evaluate & Treat Comment: Physician Instructions: Evaluate and treat Consult to Physical Therapy Evaluate & Treat Comment: Physician Instructions: postop TKA protocol Discharge provider: Codie Larose PA-C Summary Hospital Course Discharge Diagnosis: stable s/p right TKA Hospital Course: Uncomplicated hospital course. Exam Vital Signs (past 8 hours): - 02/04/24 05:09 02/04/24 08:00 Temperature 96.3 F L 97.2 F L Pulse Rate 80 72 Respiratory Rate 17 16 Blood Pressure 106/60 112/52 L Pulse Oximetry 97 99 Oxygen Flow Rate 0 Oxygen Delivery Method Nasal Cannula Oxygen Flow Rate 0 Narrative Exam Narrative: Lying comfortably in bed during our interview today. SCDs on and functioning. Resp Effort & Inspection: normal respiratory effort and able to speak in complete sentences Cardio Rate: regular rate Other: Brisk capillary refill. Neuro General: patient alert, patient awake and patient oriented x3 Other: Gross sensation intact throughout bilateral lower extremities. Extrem Other: Grossly normal alignment, moderate global right lower extremity swelling. Postsurgical dressings intact, clean and dry without drainage. 5/5 strength with DF, PF, EHL. Calves soft and non-tender bilaterally. Psych Appearance: grossly normal Speech and Movement: speech and movement normal Objective Labs 02/04/24 04:55 Labs: Laboratory Results - last 24 hr 02/04/24 04:55 Hgb 11.8 L Hct 34.2 L PFSH Medical History (Updated 01/25/24 @ 10:20 by Blanca Marshall RN) History of COVID-19 (2022) Leukopenia Anemia Anxiety Depression Abrasion of left knee (12/28/19) Breast cancer, right (09/2018) Surgical History (Updated 01/25/24 @ 10:11 by Blanca Marshall RN) History of breast surgery H/O left wrist surgery (07/2023) History of open reduction and internal fixation (ORIF) procedure (01/04/20) History of bilateral tubal ligation Hx of cholecystectomy (1996) Hx of bilateral mastectomy (01/2019) Hx of right knee surgery Hx of arthroscopy of right knee Status post delivery (12/18/97) Family History Mother History of diabetes mellitus, type II History of hypertension History of hyperlipidemia History of stroke Social History household members: none Smoking Status: Never smoker alcohol intake: current Discharge Assessment & Plan Assessment and Plan Assessment: stable s/p R TKA Plan of Treatment: 1) plan to discharge to home today with daughter/family pending final PT evaluation. 2) continue multimodal pain management with ice to the knee for additional pain control. Postop medications have been sent to patient's retail pharmacy. 3) ASA b.i.d. for DVT prophylaxis for 6 weeks. 4) Start outpatient physical therapy to work on range of motion and mobility. Weightbearing as tolerated. The patient has been prescribed a hinged knee brace/semi rigid orthosis which is imperative for patients adequate postop recovery, improved pain control and stability. She is to keep the hinged knee brace in the fully unlocked position (full extension and flexion), she is to wear the hinged knee brace at all times other than showering. 5) Keep dressing intact, clean, dry until 2 week postop appointment. No soaking the incision site in pools or tubs. No topical ointments or creams to the incision site. 5) Follow up at [facility] in 2 weeks for a postop appointment and wound check. All patient's questions were answered, she demonstrates understanding and is in agreement with the plan. Call our office if any questions or concerns arise. Discharge Plan Discharge Plan Patient Disposition: Home Provider Discharge Comment: [email or web address] Discharge orders & Medications Discharge Orders: Discharge (Order); Ordered 02/04/24 Ordered By: Codie Larose Prescriptions: New docusate sodium 100 mg Capsule 100 mg PO BID PRN (Reason: constipation) Qty: 30 0RF ibuprofen 600 mg Tablet 600 mg PO Q6H PRN (Reason: pain) Qty: 90 0RF ondansetron 4 mg Tablet,Disintegrating 4 mg PO Q8H PRN (Reason: Nausea And Vomiting) Qty: 10 0RF oxycodone 5 mg Tablet 5 mg PO Q4-6H PRN (Reason: Pain, Severe (7-10)) Qty: 30 0RF aspirin 81 mg Tablet,Delayed Release (Dr/Ec) 81 mg PO BID 42 Days Qty: 84 0RF Continued trazodone 50 mg Tablet 50 mg PO BEDTIME gabapentin 300 mg Capsule 300 mg PO BEDTIME zoledronic acid 4 mg Recon Soln 4 mg IV Q6M anastrozole 1 mg Tablet 1 mg PO DAILY Qty: 0 duloxetine 30 mg Capsule,Delayed Release(Dr/Ec) 60 mg PO DAILY Changed acetaminophen [Tylenol Extra Strength] 500 mg Tablet 1,000 mg PO Q8H PRN (Reason: Pain) Qty: 120 0RF Discontinued ibuprofen 200 mg Capsule 400 mg PO Q6H PRN (Reason: Pain) Excedrin Migraine 250-250-65 mg Tablet 1 tab PO Q4-6H PRN (Reason: Migraine Headache) Follow up/Referrals: Zeny Smith PA-C [Primary Care Provider] - Edward Hawk MD [Physician] - (Follow up at [facility] as scheduled in 2 weeks. Appointment is scheduled for 02/17/2024 at 10:30 a.m..) Diet/Activity/Treatments Diet: Diet as Tolerated Activity: Weight-bearing as tolerated. Work with outpatient PT to improve mobility. Keep hinged knee brace on in the unlocked position. Cold/Heat Therapy: Ice to the knee for additional pain control. Skin/Wound/Dressing Care Report to your healthcare provider any signs of infection, such as:: chills, fever, night sweats, unusual drainage and unusual redness Dressing: Keep dressing intact, clean and dry until 2 week post-op appointment. No soaking the incision site in pools or tubs. No topical ointments or creams to the incision site. Visit Report/Discharge Packet Instructions: DI for Knee Replacement, DI for Prescription Opioid Use Stand Alone Forms: Patient Portal/API Discharge Data Primary Care Provider: Zeny Smith Attending Provider: Edward Hawk
[2024-02-04 12:00] VITALS: BP 114/61; PULSE 76; RESP 14; TEMP 36.4; O2SAT 98
--- NOTE | 2024-02-04 15:05 | PC.NURSE ---
dc instructions given to pt\daughter. Pt moves well out of chair to WC with leg brace on. Pt verbalizes understanding of opiode use. dc'd via wheelchair; daughter driving pt home. Pt's ice pump found in pacu and has with her at discharge
== END 2024-02-04 12:30 | disposition home or self-care (01) ==
LOC: OR 11:15 → AC 17:26
PROVIDERS: PCP Physician Assistant; Referring Provider Orthopaedic Surgery Adult Reconstructive Orthopaedic Surgery; Visit Provider Orthopaedic Surgery Adult Reconstructive Orthopaedic Surgery
PROC: 0SRC0JZ Replacement of Right Knee Joint with Synthetic Substitute, Open Approach (ICD-10-PCS; CPT 27447; principal; 2024-02-03 13:45)
DX: M17.11 Unilateral primary osteoarthritis, right knee (principal); M25.761 Osteophyte, right knee
CPT/HCPCS: 27447; 36415; 73560; 85014; 85018; 97161; 97530; C1776; J0690; J1100; J1170; J2250; J2405; J2704; J3010; J3410

== ENCOUNTER → 2025-02-07 10:12 | Outpatient (CLI) | payer MEDICARE, MEDICAID, SELFPAY ==
[2024-02-03 18:14] VITALS: BMI 34.7
--- NOTE | 2025-02-07 10:16 | DI.RAD.S_ITS ---
PROCEDURE: ORTHO-XR KNEE WB RIGHT INDICATIONS: s/p right TKA TECHNIQUE: 2 view(s) of the knee acquired. COMPARISON: None. FINDINGS: Bones: Patient is status post knee joint arthroplasty. Hardware components are in expected positions. Visualized bony structures are intact. Soft tissues: Overlying postoperative changes are noted. IMPRESSION: Expected post-operative appearance of a knee arthroplasty. Approved by: Edward Fallon M.D. on 02/08/2025 at 15:16
== END ==
PROVIDERS: PCP Physician Assistant; Referring Provider Orthopaedic Surgery Adult Reconstructive Orthopaedic Surgery; Visit Provider Orthopaedic Surgery Adult Reconstructive Orthopaedic Surgery
DX: Z96.651 Presence of right artificial knee joint (principal)
CPT/HCPCS: 73564